=== PATIENT | male | born 1980 | race Two or more races ===

== ENCOUNTER 2017-12-22 22:37 | Emergency (ER) | payer OTHER ==
[~2017-12-22] VITALS: Ht 182.9 cm; Wt 90.7 kg
--- NOTE | 2017-12-22 22:40 | NUR ---
TO BED 12 A 37 YO MALE PATIENT BBSELF AND C/O NAUSEA VOMITING. PATIENT IS AAOX4, NAD NOTED. VSS. SKIN WARM AND DRY. COMFORT MEAURES RENDERED.
[2017-12-22] MEDS ORDERED: ONDANSETRON HCL/PF 4 MG/2 ML VIAL IVP ONE (23:00)
[2017-12-22] MEDS ORDERED: IV NS 0.9% 1,000 ML BAG IV ONE (23:00)
[2017-12-22] MEDS ORDERED: ONDANSETRON HCL/PF 4 MG/2 ML VIAL ONE (23:02)
--- NOTE | 2017-12-22 23:10 | NUR ---
started a saline lock on the rac g18, blood drawn and sent to lab.
[2017-12-22 23:30] LABS: BASOPHILS % (AUTO) 0.3 % (0.0-2.0); EOSINOPHILS % (AUTO) 0.1 % (0.0-6.0); HEMATOCRIT 49 % (39-51); HEMOGLOBIN 16.6 g/dL (13.5-17.5); LYMPHOCYTES # (AUTO) 2.3 /CMM (0.8-4.8); LYMPHOCYTES % (AUTO) 13.8 % (20.0-44.0); MEAN CORPUSCULAR HGB CONC 34 g/dl (31.0-36.0); MEAN CORPUSCULAR VOLUME 85 fL (80-96); MONOCYTES # (AUTO) 0.9 /CMM (0.1-1.30); NEUTROPHILS # (AUTO) 13.7 /CMM (1.8-8.9); NEUTROPHILS % (AUTO) 80.8 % (43.0-81.0); PLATELET COUNT (AUTO) 473 /CMM (150-450); RDW COEFFICIENT OF VARIATION 13.5 (11.5-15.0); RED BLOOD CELL COUNT(AUTO) 5.75 MIL/uL (4.5-6.0); WHITE BLOOD COUNT (AUTO) 16.9 K/uL (4.3-11.0)
[2017-12-22 23:42] LABS: CALCIUM, SERUM 9.9 mg/dL (8.5-10.1); CREATININE 1.2 mg/dL (0.6-1.3); POTASSIUM 3.3 mmol/L (3.5-5.1)
[2017-12-22] MEDS ORDERED: LIDOCAINE VISCOUS 2% UD 15 ML UDC ONE (23:46)
[2017-12-22] MEDS ORDERED: MAG HYDROX/AL HYDROX/SIMETH 30 ML UDC ONE (23:46)
[2017-12-23] MEDS ORDERED: MAG HYDROX/AL HYDROX/SIMETH 30 ML UDC PO ONE
[2017-12-23] MEDS ORDERED: LIDOCAINE VISCOUS 2% UD 15 ML UDC MM ONE
--- NOTE | 2017-12-23 | NUR ---
IV removed. Catheter intact and site benign. Pressure and 4x4 applied to site. No bleeding noted.
[2017-12-23] MEDS ORDERED: POTASSIUM CHLORIDE 20 MEQ TAB.PRT.SR PO ONE ×2 (00:09)
--- NOTE | 2017-12-23 00:20 | NUR ---
Patient discharged to home in stable condition. Written and verbal after care instructions given. Patient verbalizes understanding of instruction.
[2017-12-23 00:21] VITALS: BP 131/88
== END 2017-12-23 00:22 | disposition home or self-care (01) ==
LOC: ER 22:41
DX: F11.23 Opioid dependence with withdrawal (principal); K29.70 Gastritis, unspecified, without bleeding; G47.00 Insomnia, unspecified; F17.200 Nicotine dependence, unspecified, uncomplicated
CPT/HCPCS: 36415; 80048; 85025; 96361; 96374; 99284; 99406; J2405; J7030

== ENCOUNTER 2019-08-13 22:33 | Emergency (ER) | payer BC, OTHER ==
[~2019-08-13] VITALS: Ht 175.3 cm; Wt 98.4 kg
[2019-08-13 22:45] VITALS: BP 163/89
[2019-08-13] MEDS ORDERED: TDAP [DIPH/PERTUSSIS/TET] 0.5 ML VIAL IM ONE ×2 (23:00→23:02)
== END 2019-08-13 23:18 | disposition home or self-care (01) ==
LOC: ER 22:36
DX: S61.012A Laceration without foreign body of left thumb without damage to nail, initial encounter (principal); F17.200 Nicotine dependence, unspecified, uncomplicated; W26.8XXA Contact with other sharp object(s), not elsewhere classified, initial encounter; Y93.89 Activity, other specified; Y92.89 Other specified places as the place of occurrence of the external cause; Y99.0 Civilian activity done for income or pay
CPT/HCPCS: 90471; 90715; 99283; 99406; A6403

== ENCOUNTER 2021-07-07 18:26 | Emergency (ER) | payer BC, OTHER ==
[~2021-07-07] VITALS: Ht 180.3 cm; Wt 104.3 kg
--- NOTE | 2021-07-07 18:40 | NUR ---
called in ED waiting room. no response.
--- NOTE | 2021-07-07 18:45 | NUR ---
CALLED TO TRIAGE,WENT OUT FOR SMOKE PER ADMITTING
[2021-07-07] MEDS ORDERED: HYDR-4209 PO (20:47)
[2021-07-07] MEDS ORDERED: IBUP-1955 PO (20:47)
[2021-07-07 21:08] VITALS: BP 138/79
== END 2021-07-07 21:13 | disposition home or self-care (01) ==
LOC: ER 18:28
DX: M25.512 Pain in left shoulder (principal); F17.200 Nicotine dependence, unspecified, uncomplicated
CPT/HCPCS: 73030-TC